=== PATIENT | female | born 1990 | race Caucasian/White ===

== ENCOUNTER 2017-05-20 12:21 | Emergency (ER) | payer BC, MEDICAID ==
[~2017-05-20] VITALS: Ht 162.6 cm; Wt 82.0 kg
[2017-05-20] MEDS ORDERED: DIPH25CA83 PO (12:32)
[2017-05-20] MEDS ORDERED: ACETAMINOPHEN 500MG TABLET PO ONE (13:45)
[2017-05-20 14:30] VITALS: BP 125/70
== END 2017-05-20 14:30 | disposition home or self-care (01) ==
LOC: ER 14:06
DX: K13.0 Diseases of lips (principal); J45.909 Unspecified asthma, uncomplicated; F12.10 Cannabis abuse, uncomplicated
CPT/HCPCS: 99283